=== PATIENT | male | born 1985 | race Caucasian/White ===

== ENCOUNTER 2024-01-19 20:59 | Emergency (ER) | payer OTHER ==
[2024-01-19] MEDS ORDERED: Ondansetron ODT 4 MG TAB ONE (22:07)
[2024-01-19] MEDS ORDERED: Morphine 4 MG/ML VIAL ONE (22:08)
[2024-01-19] MEDS ORDERED: Ibuprofen 200 MG TAB ONE (22:13)
== END 2024-01-19 23:04 | disposition home or self-care (01) ==
LOC: ERS 20:59
DX: S43.102A Unspecified dislocation of left acromioclavicular joint, initial encounter (principal); F17.220 Nicotine dependence, chewing tobacco, uncomplicated; W18.31XA Fall on same level due to stepping on an object, initial encounter; Y93.66 Activity, soccer
CPT/HCPCS: 96372; 99283; J2272; Q0162